=== PATIENT | female | born 1980 | race Caucasian/White ===

== ENCOUNTER 2016-11-27 09:18 | Emergency (ER) | payer OTHER ==
[2016-11-27 09:23] VITALS: BP 111/58
[2016-11-27] MEDS ORDERED: predniSONE TAB* 20 MG PO ONE (10:00)
--- NOTE | 2016-11-27 10:01 | UC ---
Skin Complaint HPI - HPI Summary HPI Summary: scattered itching papular rash on legs, arms and buttock---present for 3 days--- began after being outdoors, no known specific exposure - History of Current Complaint Chief Complaint: UCRash Time Seen by Provider: 11/27/16 09:53 Stated Complaint: RASH Hx Obtained From: Patient Hx Last Menstrual Period: 11/08/16 ?: No Onset/Duration: Sudden Onset, Lasting Days - 3, Still Present Skin Exposure Onset/Duration: Days Ago - 3 Timing: Constant Onset Severity: Moderate Current Severity: Moderate Location: Diffuse Character: Redness Aggravating: Nothing Alleviating: Nothing, Other - TRIED otc ITCH CREAM Associated Signs & Symptoms: Positive: Rash. Negative: Difficulty Breathing, Fever, Chills, Drainage, Bruising, Tenderness, Red Streaks Related History: Possible Reaction to: Environmental Exposure - Allergy/Home Medications Allergies/Adverse Reactions: Allergies Allergy/AdvReac Type Severity Reaction Status Date / Time No Known Allergies Allergy Verified 11/27/16 09:23 Review of Systems Constitutional: Negative Skin: Rash Eyes: Negative ENT: Negative Respiratory: Negative Cardiovascular: Negative Gastrointestinal: Negative Genitourinary: Negative Motor: Negative Neurovascular: Negative Musculoskeletal: Negative Neurological: Negative Psychological: Negative All Other Systems Reviewed And Are Negative: Yes PMH/Surg Hx/FS Hx/Imm Hx Previously Healthy: Yes - Surgical History Surgical History: Yes Surgery Procedure, Year, and Place: gallbladder. Tonsills. D and C - Family History Known Family History: Positive: None - Social History Occupation: Unemployed Lives: With Family Alcohol Use: Rare Substance Use Type: None Smoking Status (MU): Heavy Every Day Tobacco Smoker Type: Cigarettes Amount Used/How Often: 1/2 ppd Cessation Counseling: Patient Advised to Stop Physical Exam Triage Information Reviewed: Yes Appearance: Well-Appearing, No Pain Distress, Well-Nourished Vital Signs: Initial Vital Signs Temp 99.1 F 11/27/16 09:19 Pulse 110 11/27/16 09:19 Resp 16 11/27/16 09:19 BP 111/58 11/27/16 09:19 Pulse Ox 100 11/27/16 09:19 Vital Signs Reviewed: Yes Eye Exam: Normal Eyes: Positive: Conjunctiva Clear ENT Exam: Normal ENT: Positive: Normal ENT inspection, Hearing grossly normal. Negative: Nasal congestion, Nasal drainage, Trismus, Muffled/hoarse voice Dental Exam: Normal Neck exam: Normal Neck: Positive: Supple, Nontender, No Lymphadenopathy Respiratory Exam: Normal Respiratory: Positive: Chest non-tender, Lungs clear, Normal breath sounds, No respiratory distress, No accessory muscle use Cardiovascular Exam: Normal Cardiovascular: Positive: Pulses Normal, Brisk Capillary Refill Musculoskeletal Exam: Normal Musculoskeletal: Positive: Strength Intact, ROM Intact, No Edema Neurological Exam: Normal Neurological: Positive: Alert, Muscle Tone Normal Psychological Exam: Normal Skin: Positive: rashes - SCATTERED ITCHY PAPULAR RASH Course/Dx - Course Course Of Treatment: Prednisone, Benadryl, cool compress, avoid itching follow with pcp prn - Differential Diagnoses - Skin Complaint Differential Diagnoses: Allergic Reaction, Cellulitis, Local Allergic Reaction, Poison Aylin, Poison Halliday - Diagnoses Provider Diagnoses: Allergic reaction to eviromental exposure, nicotine dependent Discharge - Discharge Plan Condition: Stable Disposition: HOME Prescriptions: diPHENhydraMINE PO* [Benadryl PO 25 MG TAB*] 25 - 50 mg PO Q6H PRN #40 tab PRN Reason: itching predniSONE TAB* [Deltasone TAB*] 10 mg PO DAILY #20 tab Patient Education Materials: Urticaria (ED), Cold Compress or Soak (ED) Referrals: [facility] [Outside] - 5 Days
== END 2016-11-27 10:10 | disposition home or self-care (01) ==
LOC: UCEAST 09:18
DX: T78.49XA Other allergy, initial encounter (principal); R21 Rash and other nonspecific skin eruption; X58.XXXA Exposure to other specified factors, initial encounter; F17.210 Nicotine dependence, cigarettes, uncomplicated; Z90.49 Acquired absence of other specified parts of digestive tract
CPT/HCPCS: 99202; G0463; J7512

== ENCOUNTER 2019-01-04 23:17 | Inpatient (IN) | payer MEDICAID, OTHER ==
[2019-01-04] MEDS ORDERED: Oxytocin in LR* 20 UNITS/1,000 ML BAG IVPB ONE (23:59)
[2019-01-05] MEDS ORDERED: Lactated Ringers 1000 ML Bag* 1,000 ML IV ONE (00:05)
[2019-01-05] MEDS ORDERED: Buffered Lidocaine 1% SYRIN* 1 ML/SYRINGE INTRADERM ONE (00:05)
--- NOTE | 2019-01-05 00:05 | PROCNOTE ---
[facility] OB: Delivery Note - Delivery A Date of : 01/04/19 Time of : 23:54 Sex: Male Score 1 Minute: 8 Score 5 Minutes: 9 Gestational Age in Weeks and Days at Delivery: 40 Weeks and 0 Days Delivery Method: Spontaneous Vaginal Labor: Spontaneous Estimated Blood Loss: 200 Anesthesia/Analgesia: None Delivered By: Jazz Falk - Nursery Level of Nursery: Regular/Bedside - Perineum Perineal Injury: Abrasion Only - Not Repaired Perineal Repair: None
[2019-01-05] MEDS ORDERED: Glycerin ADULT SUPP PR PRN (00:06)
[2019-01-05] MEDS ORDERED: Acetaminophen TAB* 325 MG PO PRN (00:06)
[2019-01-05] MEDS ORDERED: Witch Hazel PAD* JAR TOPICAL PRN (00:06)
[2019-01-05] MEDS ORDERED: Dibucaine 1% 28.35 GM TUBE PR PRN (00:06)
[2019-01-05] MEDS ORDERED: Ibuprofen TAB* 600 MG PO PRN (00:06)
--- NOTE | 2019-01-05 00:13 | HP ---
General Information - Reason for Visit active labor - General Information Maternal Age: 38 Grav: 5 Para: 3 SAB: 0 IEA: 1 Estimated Due Date: 01/04/19 Gestational Age in Weeks/Days: 40 Maternal Blood Type and Rh: O Positive - Results this Serology/RPR Result: Non-Reactive Rubella Result: Immune HBsAg Result: Negative HIV Result: Negative GBS Culture Result: Negative Past Medical History Delivery History: Hx Uncomplicated Vaginal Delivery Pertinent Past Medical History: See Records - chronic hep C, history of drug abuse, tobacco use, late to care Pertinent Past Surgical History: See Records - D&E polyps, gallbladder Pertinent Family History: See Records - M: Buerger's disease - Antepartal Records Antepartal Records: Reviewed, Complicated by: - chronic Hep C, history of drug abuse, tobacco use, late to care Review of Systems Constitutional: Uncomfortable CV Complaint: No Respiratory: Shortness of Breath: No Gastrointestinal: No Nausea/Vomiting, Normal Bowel Movement Genitourinary: No Dysuria, No Bleeding, No Leaking Fluid Musculoskeletal: Contractions Neurological: No Headache, No Visual Changes Movement: Normal Exam Allergies/Adverse Reactions: Allergies No Known Allergies Allergy (Verified 01/04/19 23:25) BP: 106/67, P:84 - Measurements Height: 5 ft 6 in Weight: 152 lb Weight in lbs: 152.155088 Body Mass Index (BMI): 24.5 Pre- Weight: 135 lb Weight Gained This : 17 lbs and 0 ozs - Exam Breast: Breast Exam Deferred CVA: No CVA Tenderness Extremities: No Edema Heart: Normal Rhythm/Heart Sounds HEENT: No Significant Findings Lungs: Clear Bilaterally Rectal: Rectal Exam Deferred Reflexes: DTR 2+ Thyroid: No Thyromegaly - Abdominal Exam Abdomen Exam: Fundal Height Consistent with Dates - Ultrasound/Biophysical Profile Ultrasound Status: Not Done Targeted Exam Findings Estimated Weight: 7lbs Cervical Exam: 8cm Effacement: 100% Station: 0 Presenting Part: Vertex Membrane Status: Bulging Bleeding/Discharge: None EFM Findings - External Monitor Findings Baseline Heart Rate: 155 External Monitor Findings: Accelerations Present, No Pattern of Variable or Late Decelerations, Variability Moderate, Baseline Stable Contractions: Moderate, 45-90 Seconds Contraction Frequency: 2-3 Assessment/Plan - Assessment 38 y.o , 40wks EGA, active labor - Obstetrical Risk Factors Obstetrical Risk Factors: Tobacco Use, Psychosocial Issues, Psychiatric Issues - Plan Plan: Admit - Anticipate Vaginal Delivery - Date/Time of Admission Date of Admission: 01/04/19 Time of Admission: 23:20
[2019-01-05] MEDS ORDERED: Lactated Ringers 1000 ML Bag* 1,000 ML IV SCH ×2 (01:00)
[2019-01-05] MEDS ORDERED: Oxytocin in LR* 20 UNITS/1,000 ML BAG IVPB SCH (01:00)
[2019-01-05 04:08] LABS: Urine Benzodiazepine Screen None Detected (None Detect); Urine Opiates Screen None Detected (None Detect)
[2019-01-05] MEDS: Docusate CAP* 100 MG PO SCH ×3 (08:49→21:19)
[2019-01-05] MEDS: Simethicone TAB* 80 MG TAB.CHEW PO SCH (09:19)
--- NOTE | 2019-01-05 10:06 | PTEDU ---
Patient Name: YAMILET SMITH YAMILET SMITH selected video: Follow Me Mum: [employer] Success[employer] to view on 01/05 at 10:05:08 AM from [id number]
[2019-01-06] MEDS: Simethicone TAB* 80 MG TAB.CHEW PO SCH (04:42)
[2019-01-06 06:38] LABS: Hematocrit 32 % (35-47); Hemoglobin 11.3 g/dL (12.0-16.0); Mean Corpuscular HGB Conc 35 g/dL (31-36); Mean Corpuscular Hemoglobin 30 pg (27-31); Mean Corpuscular Volume 87 fL (80-97); Mean Platelet Volume 11.5 fL (7.4-10.4); Platelet Count 63 10^3/uL (150-450); Red Blood Count 3.73 10^6 /uL (3.70-4.87); Red Cell Distribution Width 15 % (10-15); White Blood Count 8.6 10^3/uL (3.5-10.8)
[2019-01-06 07:17] LABS: ABS Eosinophils 0.2 10^3/ul (0-0.6); ABS Lymphocytes 2.3 10^3/ul (1.0-4.8); ABS Neutrophils 5.1 10^3/ul (1.5-7.7); Eosinophil % 1.9 %; Lymphocyte % 26.8 %
[2019-01-06] MEDS: Docusate CAP* 100 MG PO SCH ×2 (07:39→14:24)
[2019-01-06 08:37] VITALS: BP 102/48
[2019-01-06] MEDS ORDERED: Ferrous Gluconate TAB* 324 MG TAB PO SCH (09:00)
[2019-01-06] MEDS ORDERED: Buprenorphine TAB* 2 MG TAB.SL PO SCH (09:00)
== END 2019-01-06 20:45 | disposition home or self-care (01) | DRG 560 ==
LOC: MCHOBOUT 23:17 → MCHOB 23:22
PROVIDERS: ADMIT Midwife; ATTEND Midwife
PROC: 10E0XZZ Delivery of Products of Conception, External Approach (ICD-10-PCS; principal; 2019-01-04)
PROC: 4A1HXCZ Monitoring of Products of Conception, Cardiac Rate, External Approach (ICD-10-PCS; 2019-01-04)
DX: O99.324 Drug use complicating childbirth (principal); Z37.0 Single live birth; O99.334 Smoking (tobacco) complicating childbirth; F17.200 Nicotine dependence, unspecified, uncomplicated; F11.90 Opioid use, unspecified, uncomplicated; O71.82 Other specified trauma to perineum and vulva; Z3A.40 40 weeks gestation of pregnancy; Z86.19 Personal history of other infectious and parasitic diseases; Z90.49 Acquired absence of other specified parts of digestive tract
CPT/HCPCS: 36415; 80307; 85025; 85060; A9270-GY